=== PATIENT | female | born 1955 | race Caucasian/White ===

== ENCOUNTER 2023-05-26 06:32 | Day surgery (SDC) | payer MEDICAID ==
[~2023-05-26] VITALS: Ht 149.9 cm; Wt 72.2 kg
[~2023-05-26 06:32] MED LIST: BALANCED SALT 15 ML OPHTHALMIC IRRIG.SOLN ONE; KETOROLAC TROMETHAMINE 0.5% 5 ML OPHTHALMIC SOLUTION ONE; LISI-892 PO; METF-1211 PO; MOXIFLOXACIN HCL 0.5% 3 ML OPHTHALMIC SOLUTION ONE; PHENYLEPHRINE HCL 2.5% 2 ML OPHTHALMIC SOLUTION ONE; POVIDONE-IODINE 5% 30 ML OPHTHALMIC SOLUTION ONE; RINGERS SOLUTION,LACTATED 500 ML IV ONE; SIMV-261 PO; TROPICAMIDE 1% 2 ML OPHTHALMIC SOLUTION ONE
[2023-05-26] MEDS ORDERED: MIDAZOLAM HCL 2 MG/2 ML VIAL IVP ONE (06:33)
[2023-05-26] MEDS ORDERED: FentaNYL CITRATE PF 100 MCG/2 ML VIAL IVP ONE (06:33)
[2023-05-26] MEDS ORDERED: BALANCED SALT 15 ML OPHTHALMIC IRRIG.SOLN OU ONE (06:33)
[2023-05-26] MEDS ORDERED: CHONDR SULF A SOD/HYALURONATE 1.05 ML KIT IO ONE (06:33)
[2023-05-26] MEDS ORDERED: HYALURONATE SOD 8.5MG/0.85ML 10 MG/ML SYRINGE IO ONE (06:33)
[2023-05-26] MEDS: PHENYLEPHRINE HCL 2.5% 2 ML OPHTHALMIC SOLUTION OD SCH (07:30)
[2023-05-26] MEDS: TROPICAMIDE 1% 2 ML OPHTHALMIC SOLUTION OD SCH (07:30)
[2023-05-26] MEDS: KETOROLAC TROMETHAMINE 0.5% 5 ML OPHTHALMIC SOLUTION OD SCH (07:30)
[2023-05-26] MEDS: MOXIFLOXACIN HCL 0.5% 3 ML OPHTHALMIC SOLUTION OD SCH (07:31)
[2023-05-26] MEDS: RINGERS SOLUTION,LACTATED 500 ML IV ONE (07:39)
[2023-05-26 07:40] LABS: GLUCOMETER DEV NAME(LOC) SDS.; GLUCOSE,POINT OF CARE 135 MG/DL (70-110)
[2023-05-26] MEDS ORDERED: CHOL10002 PO (08:07)
[2023-05-26] MEDS ORDERED: CYAN500T56 PO (08:07)
[2023-05-26] MEDS ORDERED: TRAZ-252 PO (08:07)
[2023-05-26] MEDS ORDERED: ACET-2247 PO (08:07)
[2023-05-26] MEDS ORDERED: LIDO1ADH23 TP (08:07)
[2023-05-26] MEDS ORDERED: MAG355OR89 PO (08:07)
[2023-05-26] MEDS: EPINEPHrine 1:1,000 [1 MG/ML] VIAL ONE (08:40)
[2023-05-26] MEDS: TETRACAINE HCL/PF 0.5% 4 ML OPHTHALMIC SOLUTION ONE (08:40)
[2023-05-26] MEDS: LIDOCAINE/PF 1% 2 ML VIAL ONE (08:40)
== END 2023-05-26 10:15 | disposition home or self-care (01) ==
LOC: SURGERY 06:32
PROVIDERS: ATTEND Ophthalmology
DX: H25.11 Age-related nuclear cataract, right eye (principal); Z88.0 Allergy status to penicillin
CPT/HCPCS: 93005; 82962; 66984; J0171; J3010; J3490; J2250; Q9967; J7120; V2632

== ENCOUNTER 2023-07-21 06:03 | Day surgery (SDC) | payer MEDICAID ==
[~2023-07-21] VITALS: Ht 152.4 cm; Wt 72.2 kg
[~2023-07-21 06:03] MED LIST changes: +ACET-2247 PO; -BALANCED SALT 15 ML OPHTHALMIC IRRIG.SOLN ONE; +CHOL10002 PO; +CYAN500T56 PO; +LIDO1ADH23 TP; -POVIDONE-IODINE 5% 30 ML OPHTHALMIC SOLUTION ONE; +TRAZ-252 PO
[2023-07-21] MEDS ORDERED: FentaNYL CITRATE PF 100 MCG/2 ML VIAL IVP ONE (06:04)
[2023-07-21] MEDS ORDERED: EPINEPHrine 1:1,000 [1 MG/ML] VIAL IM ONE (06:04)
[2023-07-21] MEDS ORDERED: LIDOCAINE/PF 1% 2 ML VIAL IM ONE (06:04)
[2023-07-21] MEDS ORDERED: TETRACAINE HCL/PF 0.5% 4 ML OPHTHALMIC SOLUTION OS ONE (06:04)
[2023-07-21] MEDS ORDERED: MIDAZOLAM HCL 2 MG/2 ML VIAL IVP ONE (06:04)
[2023-07-21] MEDS ORDERED: BALANCED SALT 15 ML OPHTHALMIC IRRIG.SOLN IO ONE (06:04)
[2023-07-21] MEDS: PHENYLEPHRINE HCL 2.5% 2 ML OPHTHALMIC SOLUTION OS SCH (06:43)
[2023-07-21] MEDS: TROPICAMIDE 1% 2 ML OPHTHALMIC SOLUTION OS SCH (06:43)
[2023-07-21] MEDS: KETOROLAC TROMETHAMINE 0.5% 5 ML OPHTHALMIC SOLUTION OS SCH (06:44)
[2023-07-21] MEDS: MOXIFLOXACIN HCL 0.5% 3 ML OPHTHALMIC SOLUTION OS SCH (06:44)
[2023-07-21 06:56] LABS: GLUCOMETER DEV NAME(LOC) SDS.; GLUCOSE,POINT OF CARE 148 MG/DL (70-110)
[2023-07-21] MEDS: RINGERS SOLUTION,LACTATED 500 ML IV ONE (06:56)
[2023-07-21] MEDS: BALANCED SALT 15 ML OPHTHALMIC IRRIG.SOLN ONE (10:11)
[2023-07-21] MEDS: LIDOCAINE/PF 1% 2 ML VIAL ONE (10:12)
[2023-07-21] MEDS: EPINEPHrine 1:1,000 [1 MG/ML] VIAL ONE (10:12)
[2023-07-21] MEDS: TETRACAINE HCL/PF 0.5% 4 ML OPHTHALMIC SOLUTION ONE (10:13)
[2023-07-21] MEDS: POVIDONE-IODINE 5% 30 ML OPHTHALMIC SOLUTION ONE (10:14)
== END 2023-07-21 09:30 | disposition home or self-care (01) ==
LOC: SURGERY 06:03
PROVIDERS: ATTEND Ophthalmology
DX: E11.36 Type 2 diabetes mellitus with diabetic cataract (principal); H25.12 Age-related nuclear cataract, left eye; I10 Essential (primary) hypertension; E78.00 Pure hypercholesterolemia, unspecified; Z79.899 Other long term (current) drug therapy; Z90.49 Acquired absence of other specified parts of digestive tract; Z98.891 History of uterine scar from previous surgery; Z98.818 Other dental procedure status; Z98.890 Other specified postprocedural states; Z88.0 Allergy status to penicillin
CPT/HCPCS: 66984; 82962; J0171; J3010; J3490; J2250; Q9967; J7120; V2632